=== PATIENT | male | born 1965 | race Caucasian/White ===

== ENCOUNTER 2021-11-27 19:00 | Emergency (ER) | payer BC ==
[2021-11-27] MEDS ORDERED: Diltiazem 25 MG/5 ML SDV IVPUSH STA (20:23)
[2021-11-27] MEDS ORDERED: Diltiazem 125 MG in Sodium Chloride 0.9% 100 ML IV SCH (20:30)
[2021-11-27 21:03] LABS: ESTIMATED GFR 51 mL/min (>60)
== END 2021-11-27 22:45 ==
LOC: JD.ED 19:00
DX: I47.1 Supraventricular tachycardia (principal); I48.91 Unspecified atrial fibrillation; Z79.01 Long term (current) use of anticoagulants; Z86.16 Personal history of COVID-19; Z20.822 Contact with and (suspected) exposure to COVID-19
CPT/HCPCS: 36415; 71046; 80053; 83735; 83880; 84443; 84484; 85025; 87635; 93005; 96374; 99285; J3490; U0002